=== PATIENT | female | born 1970 | race Caucasian/White ===

== ENCOUNTER 2023-12-04 14:28 | Inpatient (IN) | payer SELFPAY ==
[~2023-12-04] VITALS: Ht 165.1 cm; Wt 77.1 kg
[2023-12-04 14:45] VITALS: BP 142/60; PULSE 88; RESP 18; TEMP 98.9; O2SAT 96
[2023-12-04] MEDS: KETOROLAC 30 MG/ML VIAL IM ONE (15:14)
[2023-12-04 15:37] LABS: BASOPHILS % (AUTO) 0.2 % (0.0-2.0); EOSINOPHILS % (AUTO) 0.3 % (0.0-4.0); HEMATOCRIT 34.4 % (36-48); HEMOGLOBIN 11.9 g/dL (12.0-16.0); LYMPHOCYTES # (AUTO) 0.7 K/uL (2.5-16.5); LYMPHOCYTES % (AUTO) 5.1 % (20.5-51.1); MEAN CORPUSCULAR HEMOGLOBIN 32 pg (27-31); MEAN CORPUSCULAR HGB CONC 35 g/dL (33-37); MEAN CORPUSCULAR VOLUME 93.1 fL (80-94); MONOCYTES # (AUTO) 0.9 K/uL (0.8-1.0); MONOCYTES % (AUTO) 6.7 % (1.7-9.3); NEUTROPHILS # (AUTO) 11.7 K/uL (1.8-7.7); NEUTROPHILS % (AUTO) 87.7 % (42.2-75.2); PLATELET COUNT (AUTO) 263 K/uL (140-450); RED BLOOD CELL COUNT(AUTO) 3.69 MIL/uL (4.20-5.40); RED CELL DISTRIBUTION WIDTH 14.3 % (11.6-13.7); WHITE BLOOD COUNT (AUTO) 13.4 K/uL (4.8-10.8)
[2023-12-04 15:54] LABS: ANION GAP 13.3 (8-16); CALCIUM 8.5 mg/dL (8.5-10.1); CREATININE 0.7 mg/dL (0.6-1.3); POTASSIUM 3.3 mmol/L (3.5-5.1)
[2023-12-04 16:20] LABS: APPEARANCE,URINE SL CLOUDY (CLEAR); BILIRUBIN,URINE NEGATIVE (NEGATIVE); BLOOD, URINE TRACE-I (NEGATIVE); COLOR,URINE YELLOW (YELLOW); LEUKOCYTE ESTERASE ,URINE 1+ (NEGATIVE); NITRITE, URINE POSITIVE (NEGATIVE); PROTEIN,URINE 1+ (NEGATIVE); UGLUCOSE NEGATIVE (NEGATIVE); UROBILINOGEN,URINE 0.2 EU/dL (0.2 - 1)
[2023-12-04 16:33] LABS: BACTERIA,URINE 10-30 (MOD) /HPF (None Seen); SQUAMOUS EPITHELIAL CELL,UR 4-10 (MOD) /LPF (0-3 (FEW))
[2023-12-04 16:48] LABS: FLU A ANTIGEN negative (NEGATIVE); FLU B ANTIGEN NEGATIVE (NEGATIVE)
[2023-12-04] MEDS: NACL 0.9% 1,000 ML IV ONE (16:53)
[2023-12-04] MEDS ORDERED: ZOLPIDEM 5 MG TAB PO PRN (17:35)
[2023-12-04] MEDS ORDERED: ONDANSETRON 4 MG/2 ML VIAL IVP PRN (17:35)
[2023-12-04] MEDS ORDERED: cefTRIAXone 1,000 MG VIAL ONE (17:46)
[2023-12-04] MEDS: NACL 0.9% 1,000 ML IV SCH (17:54)
[2023-12-04 19:30] VITALS: BP 128/67; PULSE 70; RESP 18; TEMP 98.1; O2SAT 96
[2023-12-04 20:00] VITALS: PULSE 70; RESP 18; O2SAT 96
[2023-12-04] MEDS: HYDROcodone/APAP 5/325 MG 1 TAB TAB PO PRN (21:04)
[2023-12-05 04:00] VITALS: BP 116/65; PULSE 68; RESP 20; TEMP 97.2; O2SAT 98
[2023-12-05 05:19] LABS: BASOPHILS # (AUTO) 0.1 K/uL (0.00-0.22); BASOPHILS % (AUTO) 0.9 % (0.0-2.0); EOSINOPHILS # (AUTO) 0.2 K/uL (0-0.4); EOSINOPHILS % (AUTO) 2.1 % (0.0-4.0); HEMATOCRIT 34.4 % (36-48); HEMOGLOBIN 11.7 g/dL (12.0-16.0); LYMPHOCYTES # (AUTO) 1.2 K/uL (2.5-16.5); LYMPHOCYTES % (AUTO) 16.3 % (20.5-51.1); MEAN CORPUSCULAR HEMOGLOBIN 32 pg (27-31); MEAN CORPUSCULAR HGB CONC 34 g/dL (33-37); MEAN CORPUSCULAR VOLUME 93.9 fL (80-94); MONOCYTES # (AUTO) 0.8 K/uL (0.8-1.0); MONOCYTES % (AUTO) 10.1 % (1.7-9.3); NEUTROPHILS # (AUTO) 5.3 K/uL (1.8-7.7); NEUTROPHILS % (AUTO) 70.6 % (42.2-75.2); PLATELET COUNT (AUTO) 256 K/uL (140-450); RED BLOOD CELL COUNT(AUTO) 3.66 MIL/uL (4.20-5.40); RED CELL DISTRIBUTION WIDTH 14.8 % (11.6-13.7); WHITE BLOOD COUNT (AUTO) 7.6 K/uL (4.8-10.8)
[2023-12-05 05:40] LABS: ALBUMIN 2.9 g/dL (3.4-5.0); ANION GAP 10.5 (8-16); CREATININE 0.5 mg/dL (0.6-1.3); POTASSIUM 3.5 mmol/L (3.5-5.1); TOTAL BILIRUBIN 1.5 mg/dL (0.0-1.0); TOTAL PROTEIN, SERUM 6.2 g/dL (6.4-8.2)
[2023-12-05 08:00] VITALS: BP 114/70; PULSE 90; RESP 18; TEMP 97.6; O2SAT 99
[2023-12-05] MEDS: PANTOPRAZOLE 40 MG INJ VIAL IVP SCH (08:18)
[2023-12-05] MEDS: DOCUSATE SODIUM 100 MG GELCAP PO SCH (09:00)
[2023-12-05] MEDS: DEXT 5% /NACL 0.9% 1,000 ML IV SCH (12:56)
[2023-12-05 16:00] VITALS: BP 115/68; PULSE 60; RESP 18; TEMP 97.7; O2SAT 98
[2023-12-05 19:55] VITALS: BP 113/75; PULSE 69; RESP 18; TEMP 97.1; O2SAT 98
[2023-12-05 20:00] VITALS: PULSE 69; RESP 18; O2SAT 99
[2023-12-06 05:16] LABS: BASOPHILS # (AUTO) 0.2 K/uL (0.00-0.22); BASOPHILS % (AUTO) 3.1 % (0.0-2.0); EOSINOPHILS # (AUTO) 0.1 K/uL (0-0.4); EOSINOPHILS % (AUTO) 0.9 % (0.0-4.0); HEMOGLOBIN 12.4 g/dL (12.0-16.0); LYMPHOCYTES # (AUTO) 1.4 K/uL (2.5-16.5); LYMPHOCYTES % (AUTO) 19.7 % (20.5-51.1); MEAN CORPUSCULAR HEMOGLOBIN 32 pg (27-31); MEAN CORPUSCULAR HGB CONC 34 g/dL (33-37); MEAN CORPUSCULAR VOLUME 93.7 fL (80-94); MONOCYTES # (AUTO) 0.9 K/uL (0.8-1.0); MONOCYTES % (AUTO) 12.1 % (1.7-9.3); NEUTROPHILS # (AUTO) 4.6 K/uL (1.8-7.7); NEUTROPHILS % (AUTO) 64.2 % (42.2-75.2); PLATELET COUNT (AUTO) 259 K/uL (140-450); RED BLOOD CELL COUNT(AUTO) 3.85 MIL/uL (4.20-5.40); RED CELL DISTRIBUTION WIDTH 14.5 % (11.6-13.7); WHITE BLOOD COUNT (AUTO) 7.1 K/uL (4.8-10.8)
[2023-12-06 05:45] LABS: ANION GAP 11.6 (8-16); CALCIUM 8.1 mg/dL (8.5-10.1); CARBON DIOXIDE 26.5 mmol/L (21-32); CREATININE 0.5 mg/dL (0.6-1.3); POTASSIUM 3.1 mmol/L (3.5-5.1); TOTAL BILIRUBIN 1.2 mg/dL (0.0-1.0); TOTAL PROTEIN, SERUM 6.5 g/dL (6.4-8.2)
[2023-12-06 08:00] VITALS: BP 129/73; PULSE 68; RESP 18; TEMP 97.5; O2SAT 98
[2023-12-06] MEDS: ACETAMINOPHEN 325 MG TAB PO PRN (09:20)
[2023-12-06] MEDS: POTASSIUM CHLORIDE 10 MEQ TABER PO PRN (10:15)
[2023-12-06] MEDS ORDERED: NITR100C7 PO (11:19)
[2023-12-06] MEDS ORDERED: HYDRAGUARD CREAM TP SCH (13:00)
== END 2023-12-06 11:40 | disposition home or self-care (01) | DRG 389 ==
LOC: MED 14:28 → MTU 17:34
PROVIDERS: ADMIT Student in an Organized Health Care Education/Training Program; ATTEND Student in an Organized Health Care Education/Training Program
DX: K56.600 Partial intestinal obstruction, unspecified as to cause (principal); N39.0 Urinary tract infection, site not specified; E87.6 Hypokalemia; Z90.49 Acquired absence of other specified parts of digestive tract
CPT/HCPCS: 36415; 71045; 74250; 80048; 80053; 81001; 85025; 87086; 87186; 96361; 96365; 96372; 99285; C9113; J0696; J1885; J7060; Q9967

== ENCOUNTER 2024-01-22 20:13 | Emergency (ER) | payer SELFPAY ==
[~2024-01-22] VITALS: Ht 165.1 cm; Wt 74.0 kg
[~2024-01-22 20:13] MED LIST: NITR100C7 PO
[2024-01-22 20:32] VITALS: BP 125/62; PULSE 104; RESP 14; TEMP 103.1; O2SAT 99
[2024-01-22] MEDS ORDERED: ACETAMINOPHEN EXTRA STRENGTH 500 MG TAB ONE (20:37)
[2024-01-22] MEDS: ACETAMINOPHEN EXTRA STRENGTH 500 MG TAB PO ONE (20:58)
[2024-01-22 21:21] LABS: BASOPHILS # (AUTO) 0.1 K/uL (0.00-0.22); BASOPHILS % (AUTO) 0.6 % (0.0-2.0); HEMATOCRIT 35.4 % (36-48); HEMOGLOBIN 11.9 g/dL (12.0-16.0); LYMPHOCYTES # (AUTO) 1.4 K/uL (2.5-16.5); LYMPHOCYTES % (AUTO) 12.6 % (20.5-51.1); MEAN CORPUSCULAR HEMOGLOBIN 31 pg (27-31); MEAN CORPUSCULAR HGB CONC 34 g/dL (33-37); MEAN CORPUSCULAR VOLUME 93.6 fL (80-94); MONOCYTES # (AUTO) 1.6 K/uL (0.8-1.0); MONOCYTES % (AUTO) 14.3 % (1.7-9.3); NEUTROPHILS # (AUTO) 8.2 K/uL (1.8-7.7); NEUTROPHILS % (AUTO) 72.5 % (42.2-75.2); PLATELET COUNT (AUTO) 231 K/uL (140-450); RED BLOOD CELL COUNT(AUTO) 3.78 MIL/uL (4.20-5.40); RED CELL DISTRIBUTION WIDTH 13.7 % (11.6-13.7); WHITE BLOOD COUNT (AUTO) 11.3 K/uL (4.8-10.8)
[2024-01-22 21:30] LABS: APPEARANCE,URINE SLIGHTLY CLOUDY (CLEAR); BILIRUBIN,URINE NEGATIVE (NEGATIVE); BLOOD, URINE 3+ (NEGATIVE); COLOR,URINE YELLOW (YELLOW); LEUKOCYTE ESTERASE ,URINE TRACE (NEGATIVE); NITRITE, URINE POSITIVE (NEGATIVE); PROTEIN,URINE TRACE (NEGATIVE); UGLUCOSE TRACE (NEGATIVE)
[2024-01-22 21:31] LABS: ANION GAP 14.2 (8-16); CALCIUM 7.6 mg/dL (8.5-10.1); CARBON DIOXIDE 24.2 mmol/L (21-32); CREATININE 0.6 mg/dL (0.6-1.3); POTASSIUM 3.4 mmol/L (3.5-5.1)
[2024-01-22 21:32] LABS: BACTERIA,URINE 2+ /HPF (None Seen); MUCUS,URINE None Seen /LPF (None Seen); SQUAMOUS EPITHELIAL CELL,UR 4-10 (MOD) /LPF (0-3 (FEW)); WBC,URINE 0-5 /HPF (0-5)
[2024-01-22 21:36] LABS: BILIRUBIN,DIRECT 0.2 mg/dL (0.0-0.3); TOTAL BILIRUBIN 1.1 mg/dL (0.0-1.0); TOTAL PROTEIN, SERUM 7.1 g/dL (6.4-8.2)
[2024-01-22 21:39] LABS: LACTIC ACID 0.5 mmol/L (0.4-2.0)
[2024-01-22] MEDS ORDERED: cefTRIAXone 1,000 MG VIAL ONE (22:33)
[2024-01-22] MEDS: KETOROLAC 30 MG/ML VIAL IVP ONE (22:43)
[2024-01-22] MEDS: NACL 0.9% 1,000 ML IV ONE (22:43)
[2024-01-22] MEDS: ONDANSETRON 4 MG/2 ML VIAL IVP ONE (22:44)
[2024-01-23] MEDS ORDERED: NAPR-1704 PO (01:44)
[2024-01-23] MEDS ORDERED: ACET-8905 PO (01:44)
[2024-01-23] MEDS ORDERED: CEPH-588 PO (01:44)
[2024-01-23 02:22] VITALS: BP 108/57; PULSE 64; RESP 14; TEMP 98.4; O2SAT 98
== END 2024-01-23 02:22 | disposition home or self-care (01) ==
LOC: MED 20:13
DX: N39.0 Urinary tract infection, site not specified (principal); K85.90 Acute pancreatitis without necrosis or infection, unspecified; Z90.49 Acquired absence of other specified parts of digestive tract; Z79.899 Other long term (current) drug therapy
CPT/HCPCS: 36415; 74176; 80048; 80076; 81001; 81025; 83605; 83690; 85025; 87040; 87086; 87186; 96361; 96365; 96375; 99285; J0696; J1885; J2405; J7030